=== PATIENT | female | born 1990 | race African-American/Black ===

== ENCOUNTER → 2021-06-12 | Outpatient (CLI) | payer OTHER ==
[~2021-06-12] MED LIST: DIFLUCAN150 MG PO; MACROBID100 M1 PO; MOTRIN800 MG PO; PNV-SELECT1 TAB; PNV-SELECT1 TAB PO; PRENATAL1 TA3 PO; PYRIDIUM100 MG PO; SEPTRA DS 800 M1 TAB PO; TRAMADOL HCL50 MG PO; ZITHROMAX Z PA250 MG PO
== END | disposition home or self-care (01) ==
LOC: COVID19 15:48
PROVIDERS: ATTEND Internal Medicine
DX: Z11.52 Encounter for screening for COVID-19 (principal)

== ENCOUNTER → 2021-07-30 | Outpatient (CLI) | payer OTHER | END | disposition home or self-care (01) | LOC: COVID19 16:03 | PROVIDERS: ATTEND Student in an Organized Health Care Education/Training Program | DX: U07.1 COVID-19 (principal) ==

== ENCOUNTER → 2023-04-28 | Outpatient (CLI) | payer BC | END | disposition home or self-care (01) | LOC: ORTHO 08:41 | PROVIDERS: ATTEND Orthopaedic Surgery | DX: S62.306A Unspecified fracture of fifth metacarpal bone, right hand, initial encounter for closed fracture (principal); S69.91XA Unspecified injury of right wrist, hand and finger(s), initial encounter; X58.XXXA Exposure to other specified factors, initial encounter; Y93.89 Activity, other specified; Y92.89 Other specified places as the place of occurrence of the external cause; Y99.8 Other external cause status ==

== ENCOUNTER → 2023-07-04 | Outpatient (CLI) | payer BC | END | disposition home or self-care (01) | LOC: ORTHO 13:40 | PROVIDERS: ATTEND Orthopaedic Surgery | DX: S69.91XD Unspecified injury of right wrist, hand and finger(s), subsequent encounter (principal); X58.XXXD Exposure to other specified factors, subsequent encounter ==

== ENCOUNTER 2024-02-13 12:14 | Emergency (ER) | payer BC ==
[~2024-02-13] VITALS: Ht 165.1 cm; Wt 72.6 kg
== END 2024-02-13 18:45 | disposition left against medical advice (07) ==
LOC: ED 12:14
DX: K08.89 Other specified disorders of teeth and supporting structures (principal); Z53.21 Procedure and treatment not carried out due to patient leaving prior to being seen by health care provider